=== PATIENT | female | born 1990 | race African-American/Black ===

== ENCOUNTER 2018-10-31 10:13 | Day surgery (SDC) | payer BC, SELFPAY ==
[2018-10-30 16:14] VITALS: BMI 25.1
[2018-10-31] MEDS ORDERED: Fentanyl 100 MCG/2 ML VIAL ONE (11:44)
[2018-10-31] MEDS ORDERED: Midazolam HCl 2 mg/2 ml Vial ONE (11:44)
--- NOTE | 2018-10-31 13:44 | RAD ---
FLUOROSCOPIC VIEWS RIGHT ANKLE, THREE VIEW SERIES: 10/31/18 INDICATION: ORIF right ankle. FINDINGS: There is a plate and screw fixation of the distal fibula and a single metallic screw traverses the me dial malleolus. Alignment is near anatomic on the provided intraoperative fluoroscopic views. IMPRESSION: Intraoperative imaging for fracture fixation about the right ankle. POS: [facility]
[2018-10-31] MEDS ORDERED: Bupivacaine HCl 0.5%/Epinephrine 1:200,000/PF 30 ml Vial ONE (15:03)
[2018-10-31] MEDS ORDERED: Ketorolac Tromethamine 30 MG/ML VIAL ONE (15:29)
[2018-10-31] MEDS ORDERED: Lidocaine 1% PF 5 ML VIAL ONE (15:29)
[2018-10-31] MEDS ORDERED: Ondansetron PF 4 MG/2 ML Vial ONE (15:29)
[2018-10-31] MEDS ORDERED: PROPOFOL 200 MG/20 ML VIAL ONE (15:29)
--- NOTE | 2018-11-01 09:37 | OP ---
DATE OF PROCEDURE: 10/31/2018 PREOPERATIVE DIAGNOSIS: Right ankle closed trimalleolar fracture. POSTOPERATIVE DIAGNOSIS: Right ankle closed trimalleolar fracture. PROCEDURE PERFORMED: Open reduction and internal fixation, bimalleolar fracture to include open fixation of Hutchinson B distal fibular metadiaphyseal fracture and tibial medial malleolar fixation with closed treatment of posterior malleolus. CERTIFIED SURGICAL FIRST ASSISTANT: Yang Jack PA-C ANESTHESIA: General via LMA augmented with a single shot lateral sciatic and adductor canal blocks. COMPONENTS USED: Synthes 1/3 tubular 7-hole plate for the fibula fixation with an assortment of cortical and cancellous screws and two 4.0 cannulated 36 mm screws medially. TOURNIQUET TIME: 37 minutes. FINDINGS: Bimalleolar fracture as described on the radiograph to include Hutchinson B distal fibular metadiaphyseal fracture and slightly comminuted medial malleolar fracture. DRAINS: None. SPECIMENS: None. COMPLICATIONS: None. COUNTS: Correct. INDICATION FOR PROCEDURE: Gayle is a 28-year-old female who sustained a right ankle fracture approximately a week ago. She has elected to proceed with open reduction and internal fixation as definitive treatment of this problem. PROCEDURE IN DETAIL: After informed consent was obtained, the patient was taken to the operative suite where she received preoperative antibiotics and positioned in the supine position. General anesthesia was induced. LMA was placed and secured. Once adequate anesthesia was obtained, the patient was positioned appropriately for the procedure. The right lower extremity was then prepped and draped in usual sterile fashion. A well-padded tourniquet was placed over the proximal thigh. Prior to exsanguination, a time-out was called. All members of surgical team agreed upon site, surgeon, and the patient. Once this was done, the extremity was exsanguinated. Initial incision was made directly over the distal fibula. Periosteal elevation was used to access the lateral cortex. We then used irrigation copiously and irrigated the fracture site. A blunt baby Hohmann was then placed anterior to the distal aspect anteriorly fully exposing the fracture site and was curetted out. All debris was then washed copiously. Primary reduction removal was accomplished with reduction for clamps, two of which were placed and then we achieved excellent reduction. A 7-hole plate was chosen. This was laid over the lateral side of the fibula. Interfragmentary fixation was achieved first with a 28-mm fully threaded cortical screw. We then placed our 7-hole plate laterally, drilled appropriately at cortical and cancellous holes and achieved excellent fixation. Fluoroscopy was used to confirm plate fixation. We then turned our attention to the medial malleolus. A longitudinal incision was made directly over the tip of the malleolus extending approximately 3 fingerbreadths. We identified the saphenous nerve. We anteriorly moved it forward, retracted it [facility]. Periosteal dissection carried out down to the fracture site. This was identified, curetted, irrigated out and cleaned very well. A 0.062 K-wire was then placed for provisional fixation. We placed one at the distal tip, one at the second step. This was radiographed and confirmed to be in excellent reduction and parallel screws. overdrilled and two 36 mm partially-threaded 4.0 cancellous screws were placed achieving good AO squeeze and fixation. Fluoroscopy was again brought into the field. We imaged in AP and lateral views with near anatomic reduction. Both wounds were copiously irrigated with normal saline. Primary closure was accomplished with 0 Vicryl. Subcutaneous layer was closed with 2-0 Vicryl and 3-0 nylon was used to reapproximate the skin. Sterile dressing was applied. Posterior splint was placed and allowed to cure. Procedure was terminated without any complication. The patient was awakened. LMA was removed in the operative suite and she was taken to recovery room in stable condition. Job ID: [id number]
== END 2018-10-31 16:35 | disposition home or self-care (01) ==
LOC: SDC 10:13
PROVIDERS: ATTEND Orthopaedic Surgery
PROC: 0QSJ0ZZ Reposition Right Fibula, Open Approach (ICD-10-PCS; principal; 2018-10-31)
PROC: 3E0T3BZ Introduction of Anesthetic Agent into Peripheral Nerves and Plexi, Percutaneous Approach (ICD-10-PCS; principal; 2018-10-31)
PROC: 0QSG0ZZ Reposition Right Tibia, Open Approach (ICD-10-PCS; principal; 2018-10-31)
DX: S82.841A Displaced bimalleolar fracture of right lower leg, initial encounter for closed fracture (principal); G89.18 Other acute postprocedural pain; W10.9XXA Fall (on) (from) unspecified stairs and steps, initial encounter; Y99.0 Civilian activity done for income or pay
CPT/HCPCS: 76000; C1713; C1769; J0670; J0690; J1885; J2001; J2250; J2405; J2704; J3010